=== PATIENT | female | born 1985 | race Caucasian/White ===

== ENCOUNTER 2017-01-15 15:41 | Observation (INO) | payer OTHER ==
[2017-01-15] MEDS ORDERED: Ondansetron INJ* 2 MG/ML VIAL IV PRN (15:45)
[2017-01-15] MEDS ORDERED: Albuterol HFA INHALER* 8 gm MDI INH PRN (15:51)
[2017-01-15] MEDS ORDERED: diPHENhydraMINE PO* 50 MG PO PRN (16:42)
[2017-01-15] MEDS ORDERED: Acetaminophen ADULT LIQ* 650 MG/20.3 ML UDC PO PRN (16:42)
[2017-01-15] MEDS: HYDROmorphone* 1 MG/ML 1 ML SYR IV PRN ×2 (17:58→21:27)
[2017-01-15 19:15] LABS: Hematocrit 43 % (35-47); Hemoglobin 14.8 g/dl (12.0-16.0); Mean Corpuscular HGB Conc 35 g/dl (31-36); Mean Corpuscular Hemoglobin 29 pg (27-31); Mean Corpuscular Volume 85 fL (80-97); Mean Platelet Volume 10 um3 (7.4-10.4); Red Blood Count 5.02 10^6/ul (4.0-5.4); Red Cell Distribution Width 13 % (10.5-15); White Blood Count 5.5 10^3/ul (3.5-10.8)
[2017-01-15 19:44] LABS: ALT 16 U/L (7-52); Albumin 4.5 g/dL (3.2-5.2); Alkaline Phosphatase 68 U/L (34-104); BUN/Creatinine Ratio 20.3 (8-20); Blood Urea Nitrogen 13 mg/dL (6-24); CO2 Carbon Dioxide 25 mmol/L (22-32); Calcium 9.6 mg/dL (8.6-10.3); Chloride 103 mmol/L (101-111); EGFR African American 139.2 (>60); EGFR Non-African American 108.2 (>60); Globulin 3.3 g/dL (2-4); Glucose 84 mg/dL (70-100); Sodium 136 mmol/L (133-145); Total Protein 7.8 g/dL (6.4-8.9)
[2017-01-15] MEDS ORDERED: Iohexol 300* (CONTRAST) 10 ML SDV IV ONE (19:52)
[2017-01-15 19:55] LABS: Anion Gap 8 mmol/L (2-11)
[2017-01-15] MEDS ORDERED: CMCS:Escitalopram (NF) 10 MG TAB PO SCH (21:00)
--- NOTE | 2017-01-15 21:13 | RAD ---
INDICATION: Abdominal pain. History of gastric surgery 2012 (Osito-en-Y). COMPARISON: CT June 22, 2016 TECHNIQUE: Axial source images were obtained from the hemidiaphragms to the symphysis pubis following administration of oral and intravenous contrast. 120 mL Omnipaque 300 was utilized. Coronal and sagittal reconstructed images were acquired. Lung bases: The lung bases are clear. Liver: The liver is mildly enlarged with findings of hepatic steatosis. There are no masses. There is no ductal dilatation. Gallbladder: Cholecystectomy. Spleen: The spleen is mildly prominent, unchanged. There are no masses. Pancreas: There is no focal pancreatic mass or ductal dilatation. Adrenal glands: There is no evidence of adrenal mass. Kidneys: The kidneys are normal in size and position. There are prompt nephrograms and there is prompt excretion bilaterally. There are no renal parenchymal masses. There is no evidence of nephrolithiasis. Adenopathy: There is no evidence of adenopathy by size criteria. Fluid collections: There are no free or localized fluid collections. Vessels:There are no significant atherosclerotic changes involving the aorta. There is no focal aneurysm. The iliac vessels are normal in caliber. The IVC appears normal. GI tract: There is prior bariatric surgery. The patient has a history of a gastric Osiot-en-Y procedure. The CT appearance is unchanged. Small bowel appears normal. There are no colonic abnormalities. There is no obstruction. The bowel gas pattern is normal. Pelvic organs: There are fluid collections in the endometrial cavity. There is bilateral tubal ligation. Both ovaries appear unremarkable. Bladder: There are no bladder masses. Abdominal and pelvic soft tissues: The extraperitoneal abdominal and pelvic soft tissues appear normal.. Osseous structures: There are no acute osseous findings. Other: None IMPRESSION: 1. Gastric Osito-en-Y procedure. 2. Mild hepatosplenomegaly with hepatic steatosis 3. Endometrial fluid collections. Suggest follow-up pelvic sonography.
--- NOTE | 2017-01-16 00:23 | HP ---
CC: Dr. Carito Desia * ADMISSION HISTORY AND PHYSICAL: DATE OF ADMISSION: 01/15/17 ATTENDING SURGEON: Dr. Nadeem Andres * (DICTATED BY NELLIE PONCE) CHIEF COMPLAINT: Abdominal pain. HISTORY OF PRESENT ILLNESS: This is a 31-year-old female who is approximately 8 months status post laparoscopic Osito-en-Y gastric bypass with Dr. Romo. She has lost approximately 100 pounds and other than one episode of minor right lower quadrant crampy pain, has had otherwise uneventful postoperative course. Beginning 2 days ago on Saturday, she began to experience crampy abdominal pain in the mid abdomen. This has been constant since then and is exacerbated by eating and drinking. She has been unable to keep any solid food down and only able to keep some liquids down. Pain has been located in the mid abdomen where it has remained since onset. She has not had any similar episodes before. She has not had any recent suspect food ingestion. She has been continuing to pass flatus and has had a normal bowel movement this morning. She denies any fever or chills. PAST MEDICAL HISTORY: Morbid obesity, PCOS, hypothyroidism, hyperlipidemia, anxiety and depression, fatty liver changes, asthma (mild). PAST SURGICAL HISTORY: Laparoscopic Osito-en-Y gastric bypass on 05/29/16, C- section x2, tubal ligation, laparoscopic cholecystectomy, NovaSure procedure for heavy menstrual bleeding in 2013. CURRENT MEDICATIONS: 1. Lexapro 20 mg daily. 2. Levothyroxine 50 mcg daily. 3. Vitamin D 2000 International Units once daily. 4. Multivitamin once daily. 5. Vitamin B12 1000 mcg daily. ALLERGIES: ERYTHROMYCIN and AUGMENTIN, both cause rash and difficulty breathing ; NAPROXEN causes hives (the patient does tolerate ibuprofen). FAMILY HISTORY: Positive for DVT in her father which occurred following amputation of one of his lower extremities. There is no additional family history of VTE. No family history of bleeding problems. SOCIAL HISTORY: The patient is . She has 4 children. She denies use of tobacco. She drinks alcohol rarely. REVIEW OF SYSTEMS: General: See HPI. No other recent acute illnesses. Weight down approximately 100 pounds from preop. She was seen in the office in November for routine bariatric followup and was doing well at that time. Her bariatric profile done around 12/21/16 was reviewed and was essentially normal including CBC. Cardiovascular: No history of chest pain, hypertension, or heart murmur. Respiratory: No recent exacerbations of her asthma. No cough or shortness of breath. GI: As above per HPI. She has had colonoscopy done last year, which was reportedly a normal study. EGD had also been done preoperatively. : No problems reported. 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 No other additions. Neuro/Psych: History of anxiety and depression. PHYSICAL EXAMINATION GENERAL: Well-nourished, obese female, who appears uncomfortable, but in no acute distress. VITAL SIGNS: Height 68 inches, weight 199 pounds (preoperative weight 314 pounds.) Temperature 97.3, blood pressure 104/72, pulse 72, respirations 16, BMI 30. HEENT: Pupils equal and round, reactive. EOMs intact. Conjunctivae pink. Oropharynx: Teeth in good repair. Mucous membranes dry. No intraoral lesions. NECK: No lymphadenopathy or thyromegaly. LUNGS: Clear to auscultation. No rales or wheezes. HEART: Regular rate and rhythm. No murmur noted. BREASTS: Not examined. ABDOMEN: Well-healed laparoscopic incision sites. The patient states that her abdomen feels bloated. Bowel sounds are present and normoactive. Abdomen is soft with [id number]-xb-[id number] tenderness limited to the mid abdomen and to the right of midline. No palpable masses or organomegaly, though there is fullness in the mid abdomen. GENITALIA AND RECTAL: Not done. BACK: No spinous process or CVA tenderness. EXTREMITIES: No edema. NEUROLOGICAL: Grossly intact. SKIN: Warm and dry. No suspicious rashes or lesions. IMPRESSION: Abdominal pain status post Osito-en-Y gastric bypass with concern for internal hernia with consequential bowel obstruction. PLAN: Case was discussed with both Dr. Andres (substation technician) and Dr. Varma. The patient will be referred to [facility] for CT scan of the abdomen and pelvis with contrast. She will then be admitted as an overnight observation for IV hydration and pain control. If her symptoms persist and/or her CT scan is suggestive, she may be taken to the operating room for diagnostic laparoscopy with Dr. Varma (Dr. Romo is away). The patient is agreeable to this plan. NELLIE PONCE [id number]/[facility] #: [id number] SARAH
[2017-01-16] MEDS: HYDROmorphone* 1 MG/ML 1 ML SYR IV PRN ×2 (07:30→13:16)
[2017-01-16] MEDS ORDERED: Pantoprazole IV* 40 MG IV SCH (08:00)
--- NOTE | 2017-01-16 09:45 | PN ---
Progress Note - Progress Note Date of Service: 01/16/17 SOAP: Subjective: Patient seen and examined by Dr. Varma. Reports feeling a little better today. Pain is still there, "not as bad", usually worsens when she eats. Denies nausea , vomiting, fever or chills. Feels very hungry, would like to resume diet. Denies dysuria or flank pain. Objective: Awake and alert, comfortable and in NAD VSS, afebrile Lungs CTA bilat. Heart RRR, no murmurs Abdomen soft, non-distended. Mild arturo-umbilical and infra-umbilical tenderness noted, but no guarding, rigidity or rebound. Incisions from prior surgeries well healed. No hernias noted. CT reviewed with Dr. Varma, no evidence of SBO or internal hernia. ? endometrial fluids collection. Labs noted, WNL Assessment: A 31 y/o female, s/p RYGB 8 month ago, with abdominal pain, dysphagia and intermittent N/V, with negative CT and labs, likely related to possible ulcer Plan: EGD today, Dr. Varma had discussed the case with Dr. Telles who will proceed with EGD later today. Patient agreed to plans Likely to d/c home later today pending EGD findings PPI and will add Carafate upon discharge
[2017-01-16] MEDS ORDERED: fentaNYL* 50 MCG/ML 2 ML VIAL (100 MCG VIAL) ONE (15:18)
[2017-01-16] MEDS ORDERED: Midazolam* 1 MG/ML 10 ML VIAL (10 MG) ONE (15:18)
[2017-01-16 16:37] VITALS: BP 116/67
[2017-01-16] MEDS ORDERED: Cholecalciferol TAB* 1000 UNITS PO SCH (21:00)
[2017-01-16] MEDS ORDERED: Levothyroxine TAB* 50 MCG TAB PO SCH (21:00)
--- NOTE | 2017-01-17 11:18 | PRO ---
CC: Dr. Carlos Enrique Varma. * DATE OF PROCEDURE: 01/16/17 - ROOM #[id number] PROCEDURE: Upper endoscopy. MEDICINES: Versed 9 mg IV, Fentanyl 75 mcg IV. NARRATIVE: This is a 31-year-old woman who is approximately 8 months status post bariatric surgery for morbid obesity. She successfully lost 8 pounds and had done very well. About 3 days ago, she started to develop periumbilical pain , which worsens after meals. The pain has persisted and she came to the emergency room. A CAT scan was generally unrevealing. Due to these symptoms, upper endoscopy was recommended. PROCEDURE IN DETAIL: After the procedure was discussed with the patient, risks and benefits were outlined, written consent was obtained. The patient was placed in the left lateral decubitus position and conscious sedation was administered. A video diagnostic gastroscope was inserted orally and passed carefully into the esophagus. The esophagus, gastric pouch, and jejunal limb were well visualized. The patient tolerated the procedure well and there were no immediate complications. FINDINGS: The esophagus was normal. There was no evidence of erosive change or stricture. The gastric pouch was normal, there was no inflammatory change or ulceration. The gastrojejunal anastomosis was normal and widely patent. There was no evidence of stricture, erosion, or inflammatory change. A couple of small sutures were identified. The endoscope was passed easily through the anastomosis. The jejunal limb was normal as well and the limb was viewed for about 30 cm without any lesion identified. CONCLUSION: Normal post-bariatric upper endoscopy without any evidence of anastomotic ulceration, erosion, or stricture. [id number]/[facility] #: [id number] MTDD
--- NOTE | 2017-01-17 13:28 | DS ---
CC Dr. Carito Desai * DISCHARGE SUMMARY: DATE OF ADMISSION: 01/15/17 DATE OF DISCHARGE: 01/16/17 ATTENDING PHYSICIAN: Dr. Varma * (DICTATED BY NELLIE LOPEZ) HOSPITAL COURSE: Please refer to admission history and physical for admission details. Briefly, the patient is sent to [facility] after office visit with history of 48 hours of persistent crampy abdominal pain associated with vomiting and poor intake. Her admission labs were essentially normal. CT scan with oral and IV contrast was normal. There was mild hepatosplenomegaly noted with hepatic steatosis and also a note of endometrial fluid collection with suggested followup pelvic ultrasound. As of the following morning, she was somewhat improved and was hungry. She was seen by Dr. Varma. EGD was requested and performed with verbal report indicating no abnormalities of the upper GI tract. The patient will be discharged on her usual home medications. She has a followup with Dr. Romo in the office on 01/21/17. She is instructed to contact our office if she has worsening symptoms of abdominal pain with vomiting. NELLIE PONCE [id number]/[facility] #: [id number] MTDD
== END 2017-01-16 18:10 | disposition home or self-care (01) ==
LOC: SSU 15:41
PROVIDERS: ADMIT Surgery; ATTEND Surgery
DX: R10.33 Periumbilical pain (principal); Z98.84 Bariatric surgery status; E66.01 Morbid (severe) obesity due to excess calories; E28.2 Polycystic ovarian syndrome; E03.9 Hypothyroidism, unspecified; E78.5 Hyperlipidemia, unspecified; F41.9 Anxiety disorder, unspecified; F32.9 Major depressive disorder, single episode, unspecified
CPT/HCPCS: 36415; 74177; 80053; 85025; 94760; 96365; 96366; 99156; A9270-GY; G0378; J1170; J2250; J2405; J3010; Q9967

== ENCOUNTER 2017-01-21 09:41 | Inpatient (IN) | payer OTHER ==
[2017-01-21] MEDS ORDERED: Albuterol HFA INHALER* 8 gm MDI INH PRN (10:31)
--- NOTE | 2017-01-21 11:14 | PN ---
Progress Note - Progress Note Date of Service: 01/21/17 SOAP: Subjective: Patient seen and examined upon her arrival. Reports same symptoms from last week. Nausea not improving, feeling bloated and mid-abdominal pain is not relived. Denies any vomiting. Her PO intake has been poor since discharge last week. Objective: Awake and alert, in NAD VSS, afebrile Lungs CTA bilat. Heart RRR, no murmurs Abdomen soft, non-distended. Mild to moderate mid-abdominal tenderness, but without guarding, rigidity or rebound. Incisions well healed. No hernias, masses or organomegally. Ext. without edema Assessment: A 32 y/o female with persistent vague, mid-abdominal pain and nausea, s/p RYGB 8 month ago, of unclear etiology. Plan: Admit for IVF NPO after midnight To OR tomorrow for diagnostic laparoscopy PPI and DVT prophylaxis.
[2017-01-21] MEDS: Pantoprazole IV* 40 MG IV SCH (11:34)
[2017-01-21] MEDS: HYDROmorphone* 1 MG/ML 1 ML SYR IV PRN ×2 (11:35→19:58)
[2017-01-21] MEDS: Ondansetron INJ* 2 MG/ML VIAL IV PRN (11:35)
[2017-01-21 11:38] LABS: Hematocrit 41 % (35-47); Hemoglobin 13.9 g/dl (12.0-16.0); Mean Corpuscular HGB Conc 34 g/dl (31-36); Mean Corpuscular Hemoglobin 29 pg (27-31); Mean Corpuscular Volume 85 fL (80-97); Mean Platelet Volume 9 um3 (7.4-10.4); Red Blood Count 4.78 10^6/ul (4.0-5.4); Red Cell Distribution Width 13 % (10.5-15); White Blood Count 4.2 10^3/ul (3.5-10.8)
[2017-01-21 11:51] LABS: BUN/Creatinine Ratio 18.3 (8-20); Calcium 9.5 mg/dL (8.6-10.3); EGFR Non-African American 115.9 (>60); Potassium 3.8 mmol/L (3.5-5.0)
[2017-01-21] MEDS: Acetaminophen ADULT LIQ* 650 MG/20.3 ML UDC PO PRN (15:24)
[2017-01-22] MEDS: Acetaminophen ADULT LIQ* 650 MG/20.3 ML UDC PO PRN ×2 (00:01→17:56)
[2017-01-22] MEDS: HYDROmorphone* 1 MG/ML 1 ML SYR IV PRN ×3 (01:57→20:38)
[2017-01-22] MEDS: Levothyroxine TAB* 50 MCG TAB PO SCH (06:03)
[2017-01-22] MEDS ORDERED: Famotidine IV* 10 MG/ML 2 ML (20 mg) IV ONE (08:22)
[2017-01-22] MEDS ORDERED: Buffered Lidocaine 0.9% SYRIN* 5 ML/SYR SYRINGE INTRADERM ONE (08:22)
[2017-01-22] MEDS ORDERED: Dexamethasone IV* 4 MG/ML 1 ML (4 MG) IV SLOW PU ONE (08:22)
[2017-01-22] MEDS ORDERED: Famotidine IV* 10 MG/ML 2 ML (20 mg) ONE (09:37)
[2017-01-22] MEDS ORDERED: Dexamethasone IV* 4 MG/ML 1 ML (4 MG) ONE (09:37)
[2017-01-22] MEDS ORDERED: fentaNYL* 50 MCG/ML 2 ML VIAL (100 MCG VIAL) IV PRN (11:20)
[2017-01-22] MEDS ORDERED: DiMENhydriNATE IV* 50 MG/ML VIAL IV PUSH PRN (11:20)
[2017-01-22] MEDS ORDERED: HYDROmorphone* 1 MG/ML 1 ML SYR IV PRN (11:20)
[2017-01-22] MEDS ORDERED: Ondansetron INJ* 2 MG/ML VIAL IV PRN (11:20)
[2017-01-22] MEDS ORDERED: Scopolamine 1.5 mg* PATCH TRANSDERM PRN (11:20)
[2017-01-22] MEDS ORDERED: Bupivacaine 0.5% W/EPI SDV* 10 ML VIAL INJ ONE (11:22)
[2017-01-22] MEDS ORDERED: fentaNYL* 50 MCG/ML 5 ML VIAL (250 MCG VIAL) ONE (11:24)
[2017-01-22] MEDS ORDERED: Atracurium* 10 MG/ML 10 ML VIAL ONE (11:24)
[2017-01-22] MEDS ORDERED: Ondansetron INJ* 2 MG/ML VIAL ONE (11:24)
[2017-01-22] MEDS ORDERED: Propofol* 10 MG/ML 20 ML BTL IV PUSH ONE (11:24)
[2017-01-22] MEDS ORDERED: Midazolam* 1 MG/ML 5 ML VIAL (5 MG) ONE (11:24)
[2017-01-22] MEDS ORDERED: Ketorolac INJ* 30 MG/ML 1 ML VIAL ONE (11:24)
[2017-01-22] MEDS ORDERED: Lidocaine 2% PF * 5 ML VIAL ONE (11:24)
[2017-01-22] MEDS ORDERED: fentaNYL* 50 MCG/ML 2 ML VIAL (100 MCG VIAL) ONE (11:57)
--- NOTE | 2017-01-22 12:40 | PN ---
Progress Note - Progress Note Date of Service: 01/22/17 Note: Brief Operative Note: Pre-op: Abdominal pain, nausea and vomiting, bariatric status Post-op: Same Procedure: Diagnostic laparoscopy with closure of internal hernia deficits Surgeon: Dr. Romo Airworthiness Safety Inspector: Magy Calloway Anaesthesia: GETA EBL: Minimal Fluids: LR 700 cc Catheters: None Drains: None specimen: None Findings: See dictated op note
[2017-01-22] MEDS: Pantoprazole IV* 40 MG IV SCH (13:30)
[2017-01-22] MEDS: Escitalopram (NF) 10 MG TAB PO SCH (14:11)
[2017-01-22] MEDS: Ondansetron INJ* 2 MG/ML VIAL IV PRN (20:39)
[2017-01-23] MEDS: Acetaminophen ADULT LIQ* 650 MG/20.3 ML UDC PO PRN ×2 (00:09→23:35)
[2017-01-23] MEDS: Levothyroxine TAB* 50 MCG TAB PO SCH (05:37)
[2017-01-23] MEDS: HYDROmorphone* 1 MG/ML 1 ML SYR IV PRN (05:38)
--- NOTE | 2017-01-23 05:55 | OP ---
CC: Dr. Argentina Maurer * DATE OF OPERATION: 01/22/17 - ROOM #333 DATE OF : 85 SURGEON: Mike Romo MD THEORETICAL PHYSICIST: NELLIE Bloom ANESTHESIOLOGIST: Jamari Philip MD ANESTHESIA: General endotracheal. PRE-OP DIAGNOSIS: Abdominal pain. POST-OP DIAGNOSES: Abdominal pain and internal hernia status post gastric bypass. OPERATIVE PROCEDURE: Diagnostic laparoscopy, closure of internal hernia defects. ESTIMATED BLOOD LOSS: Minimal. IV FLUIDS: Crystalloid. SPECIMEN: None. DRAINS: None. COMPLICATIONS: None. COUNTS: The instrument, needle, and sponge counts were correct. DESCRIPTION OF PROCEDURE: The patient was brought to the operating room and placed on the table supine. Sequential compression devices were placed on both lower extremities. General anesthesia was administered. The abdomen was prepped and draped in the usual sterile fashion. A time-out was performed. Local anesthetic was infiltrated into the skin and soft tissue prior to making each incision. The pneumoperitoneum was established using a Veress needle through a transumbilical approach and then a right upper quadrant 5-mm trocar was placed through previous scar. Laparoscope was introduced and inspection revealed no evidence of adhesions and no evidence of obvious pathology, no ascites. Under direct visualization, additional 5-mm trocars were placed in the supraumbilical midline and infraumbilically as well. The inspection proceeded with identification of the cecum, which appeared normal. The small bowel was run proximally from the ileocecal valve to the jejunojejunostomy. There was a small defect at the mesentery of the jejunojejunostomy; however, the bowel otherwise appeared to be quite normal with no evidence of inflammation. There was some mild small bowel distention in the area of the mid jejunum, but no other abnormality noted. The bowel was run from the jejuno-jejunostomy proximally to the ligament of Treitz and this appeared normal with no dilation. The jejunum was run proximally from the anastomosis to the gastrojejunal anastomosis, which also appeared normal. There were hernia defect as expected in the retro-alimentary limb and closure of the hernia defects was performed with 2-0 silk in interrupted figure-of-8 fashion tacking the mesentery of the Osito limb down to the anterior transverse colon and then the mesentery of the Osito limb also to the mesentery of the transverse colon. A single suture was used to close the defect at the jejuno- jejunostomy mesenteric site. After completing these closures, the ports were removed under direct visualization and carbon dioxide was released. The wounds were closed with 4-0 Monocryl and Steri-Strips were applied. The patient tolerated the procedure well, was extubated, and transferred to recovery room in stable condition. [id number]/[facility] #: [id number] [facility] [place] DIVISIONTonny
[2017-01-23] MEDS: Escitalopram (NF) 10 MG TAB PO SCH (08:33)
[2017-01-23] MEDS ORDERED: Ondansetron ODT TAB* 4 MG SL PRN (09:42)
[2017-01-23] MEDS: Pantoprazole IV* 40 MG IV SCH (09:55)
--- NOTE | 2017-01-23 09:58 | PN ---
Progress Note - Progress Note Date of Service: 01/23/17 SOAP: Subjective: Feeling nausea, hasn't vomited. Passing flatus and had 2 BMs. Pain controlled with Dilaudid and Tylenol. Discussed discharge expectations and she states she just wants to be ready to take care of her kids when she goes home. Objective: Vital Signs Temp 97.6 F 01/23/17 03:23 Pulse 50 01/23/17 03:23 Resp 16 01/23/17 06:38 BP 112/64 01/23/17 03:23 Pulse Ox 99 01/23/17 03:23 Gen: NAD Abd: dressings c/d i; tender at incisions. Intake & Output 01/22/17 01/23/17 01/23/17 18:59 06:59 18:59 Intake Total 4563 3085 100 Output Total 1300 1450 400 Balance 3263 1635 -300 Weight 195 lb Intake: IV Fluids 3404 1725 LR 1400 IVPB 1159 LR 1159 Oral 1360 100 Output: Urine 1300 1450 400 Assessment: POD#1 s/p dx lap/repair internal hernia defects. Nausea continues but no obvious cause, possibly gastritis in gastric remnant. Plan: Advance diet and change to po meds. If able to maintain hydration po and tolerating po meds can likely go home later today or in AM. Will add PPI to cover potential gastritis in remnant. Zofran for nausea.
[2017-01-23] MEDS: HYDROcodone/ACET. 7.5/325 LIQ* 15 ML UDC PO PRN ×3 (10:03→21:12)
[2017-01-24] MEDS: HYDROcodone/ACET. 7.5/325 LIQ* 15 ML UDC PO PRN (05:54)
[2017-01-24] MEDS: Levothyroxine TAB* 50 MCG TAB PO SCH (05:55)
[2017-01-24] MEDS ORDERED: Omeprazole CAP* 20 MG PO SCH (06:00)
[2017-01-24 08:02] VITALS: BP 109/59
[2017-01-24] MEDS: Escitalopram (NF) 10 MG TAB PO SCH (09:16)
[2017-01-24] MEDS: Acetaminophen ADULT LIQ* 650 MG/20.3 ML UDC PO PRN (09:20)
--- NOTE | 2017-01-25 01:18 | DS ---
CC: Dr. Maurer * DISCHARGE SUMMARY: DATE OF ADMISSION: 01/21/17 DATE OF DISCHARGE: 01/24/17 ATTENDING SURGEON: Mike Romo MD * (DICTATED BY NELLIE PONCE) HOSPITAL COURSE: Please refer to admission history and physical for admission details. Briefly, the patient presented with similar symptoms from 1 week earlier, at which time CT scan of the abdomen and pelvis and lab work were essentially normal. She was taken to the operating room on 01/22/17, at which time she underwent diagnostic laparoscopy with closure of internal hernia defects (see operative report). She has gradually been able to advance tolerance of diet and management of pain with oral pain medication as of the morning of discharge. PHYSICAL EXAMINATION: Vital Signs: She is afebrile. Blood pressure 109/59, pulse 57, respirations 12, room air saturation 98%. Heart: Regular rate and rhythm. Lungs: Clear to auscultation. Abdomen: Bowel sounds present. Laparoscopic incision sites healing well. No evidence of infection. Abdomen: Soft with mild tenderness in the upper mid abdomen and just to the left of midline. IMPRESSION: Status post diagnostic laparoscopy (negative) for recurrent abdominal pain; possible gastritis in the stomach remnant. PLAN: Discharge on oral PPI (omeprazole 20 mg b.i.d.). She will have a followup in our office on 01/31/17. NELLIE PONCE [id number]/[facility] #: [id number] [facility] [place] DIVISIONTonny
[2017-01-25] MEDS ORDERED: Scopolomine PATCH Remove* 1 NOTE MISC PATCH OFF ONE (11:20)
== END 2017-01-24 10:38 | disposition home or self-care (01) | DRG 227 ==
LOC: INTOOBSV 09:53 → SSU 09:53 → OBSVTOIN 01-23 14:41
PROVIDERS: ADMIT Surgery; ATTEND Surgery
PROC: 0WQF4ZZ Repair Abdominal Wall, Percutaneous Endoscopic Approach (ICD-10-PCS; principal; 2017-01-22 10:45)
DX: K29.70 Gastritis, unspecified, without bleeding (principal); K46.0 Unspecified abdominal hernia with obstruction, without gangrene; E66.9 Obesity, unspecified; R11.0 Nausea; J45.909 Unspecified asthma, uncomplicated; E03.9 Hypothyroidism, unspecified; Z98.84 Bariatric surgery status; Z88.8 Allergy status to other drugs, medicaments and biological substances; Z88.1 Allergy status to other antibiotic agents; Z68.29 Body mass index [BMI] 29.0-29.9, adult
CPT/HCPCS: 36415; 80048; 85025; 94760; A9270-GY; G0378; J1100; J1170; J1885; J2250; J2405; J2704; J3010

== ENCOUNTER 2017-12-31 08:21 | Day surgery (SDC) | payer OTHER ==
[~2017-12-31 08:21] MED LIST: Buffered Lidocaine 0.9% SYRIN* 5 ML/SYR SYRINGE INTRADERM ONE; Dexamethasone TAB* 4 MG PO ONE; DiMENhydriNATE IV* 50 MG/ML VIAL IV PUSH PRN; Famotidine IV* 10 MG/ML 2 ML (20 mg) IV ONE; Morphine INJ* 2 MG/ML 1 ML CARPUJECT IV PRN; Naloxone* 0.4 MG/ML 1 ML VIAL IV PRN; Ondansetron TAB* 4 MG PO ONE; PROCHLORPERAZINE INJ 5 MG/ML 2 ML VIAL IV PRN; Scopolamine 1.5 mg* PATCH TRANSDERM PRN; fentaNYL* 50 MCG/ML 2 ML VIAL (100 MCG VIAL) IV PRN
[2017-12-31] MEDS ORDERED: Dexamethasone TAB* 4 MG ONE (08:32)
[2017-12-31] MEDS ORDERED: Famotidine IV* 10 MG/ML 2 ML (20 mg) ONE (08:32)
[2017-12-31] MEDS ORDERED: Ondansetron ODT TAB* 4 MG ONE (08:32)
[2017-12-31] MEDS ORDERED: fentaNYL* 50 MCG/ML 2 ML VIAL (100 MCG VIAL) ONE ×3 (10:37→14:14)
[2017-12-31] MEDS ORDERED: Midazolam* 1 MG/ML 5 ML VIAL (5 MG) ONE (10:38)
[2017-12-31] MEDS ORDERED: KETAMINE HCL* 50 MG/ML 10 ML VIAL ONE (10:38)
[2017-12-31] MEDS ORDERED: Atracurium* 10 MG/ML 10 ML VIAL ONE (10:38)
[2017-12-31] MEDS ORDERED: Bupivacaine 0.25% SDV PF* 10 ML VIAL INJ ONE (12:39)
[2017-12-31] MEDS ORDERED: Propofol* 10 MG/ML 20 ML BTL IV PUSH ONE (13:21)
[2017-12-31] MEDS ORDERED: PROCHLORPERAZINE INJ 5 MG/ML 2 ML VIAL ONE ×2 (13:21→14:22)
[2017-12-31] MEDS ORDERED: Neostigmine Methylsulfate* 1 MG/ML 10 ML VIAL (1 mg/ml) ONE (13:21)
[2017-12-31] MEDS ORDERED: Lidocaine 2% PF * 5 ML VIAL ONE (13:21)
[2017-12-31] MEDS ORDERED: Glycopyrrolate IV* 0.2 MG/ML 1 ML VIAL ONE (13:21)
[2017-12-31] MEDS ORDERED: Scopolamine 1.5 mg* PATCH ONE (14:22)
[2017-12-31 15:41] VITALS: BP 112/57
--- NOTE | 2018-01-01 09:39 | OP ---
: [facility]; Dr. Linette Tapia * DATE OF OPERATION: 12/31/17 - [facility] DATE OF : 85 SURGEON: Mike Romo MD. INSIDE ACCOUNT REPRESENTATIVE: None. ANESTHESIOLOGIST: Nadeem Read MD. ANESTHESIA: General endotracheal. PRE-OP DIAGNOSIS: Abdominal pain, status post gastric bypass. POST-OP DIAGNOSIS: Abdominal pain, status post gastric bypass. OPERATIVE PROCEDURE: Diagnostic laparoscopy. ESTIMATED BLOOD LOSS: Minimal. IV FLUIDS: Crystalloid. SPECIMEN: None. DRAINS: None. COMPLICATIONS: None. COUNTS: The instrument, needle, and sponge counts correct. OPERATIVE FINDINGS: Normal findings with no abnormalities of the gastric bypass anatomy. There were some postoperative adhesions in the pelvis. DESCRIPTION OF PROCEDURE: The patient was brought to the operating room and placed on the table supine. Sequential compression devices were placed on both lower extremities. She was positioned and padded appropriately. She was prepped and draped in the usual sterile fashion. A time-out was performed. Local anesthetic was infiltrated into the skin and soft tissue prior to making each incision. Pneumoperitoneum was established by means of a Veress needle through a transumbilical approach. After insufflating carbon dioxide to a pressure of 15 mmHg, a 5 mm trocar was placed infraumbilically through the previous scar. A 5 mm trocar was placed infraumbilically through a previous scar. A 5-mm trocar was also placed under direct visualization in the left mid abdomen. Inspection of the abdominal cavity revealed no intraperitoneal adhesions to the anterior abdominal wall. The liver appeared normal as did the falciform ligament and there was no evidence of abnormal dilation of the small bowel or large bowel. Inspection proceeded from the gastrojejunal anastomosis distally tracing the Osito limb down to the jejunojejunostomy. The biliopancreatic limb was inspected and it was run proximally to the ligament of Treitz. It appeared normal, nondilated, and the anastomosis at the jejunojejunostomy appeared widely patent. There was no mesenteric defect noted. The Osito limb was again identified and then the jejunum was followed distally to the ileocecal valve. There was no abnormality in the small bowel identified. The bowel was run again proximally from the ileocecal valve to the jejunojejunostomy to assure that there were no missed abnormalities. Everything did appear normal. The defunctionalized stomach appeared normal anteriorly with no dilation. The surface underneath the liver on the right lobe appeared to have postoperative changes from the cholecystectomy, but otherwise normal. The colon appeared grossly normal through its course. There were adhesions in the pelvis and this prevented visualization of the pelvis, but no adhesiolysis was performed. At this point, the operation was concluded. Ports removed, carbon dioxide was released. Skin incisions were closed with 4-0 Monocryl and Steri-Strips applied. The patient tolerated the procedure well, was extubated, and transferred to the recovery room in stable condition. [id number]/[facility] #: [id number] [facility] HOSPITALTonny
[2018-01-03] MEDS ORDERED: Scopolamine PATCH Remove* 1 NOTE MISC PATCH OFF ONE (05:53)
== END 2017-12-31 16:01 | disposition home or self-care (01) ==
LOC: OR 08:21
PROVIDERS: ATTEND Surgery
DX: R10.84 Generalized abdominal pain (principal); Z98.84 Bariatric surgery status; R19.7 Diarrhea, unspecified; N73.6 Female pelvic peritoneal adhesions (postinfective); E78.00 Pure hypercholesterolemia, unspecified; E03.9 Hypothyroidism, unspecified; F41.8 Other specified anxiety disorders; J45.909 Unspecified asthma, uncomplicated; E28.2 Polycystic ovarian syndrome
CPT/HCPCS: 49320; A9270-GY; J0780; J2250; J2704; J2710; J3010; J3490; J8540

== ENCOUNTER 2020-07-26 14:40 | Inpatient (IN) ==
[2020-07-26] MEDS ORDERED: Thiamine 100 MG/ML 2 ml VIAL 100 MG, Folic Acid 1 MG, Multiple Vitamin IV ADULT 10 ML i... IV ONE (15:55)
[2020-07-26 17:05] LABS: ABS Lymphocytes 1.3 10^3/ul (1.0-4.8); ABS Monocytes 0.2 10^3/ul (0-0.8); ABS Neutrophils 2.6 10^3/ul (1.5-7.7); Eosinophil % 0.3 %; Hematocrit 35 % (35-47); Hemoglobin 12.2 g/dL (12.0-16.0); Lymphocyte % 30.3 %; Mean Corpuscular HGB Conc 35 g/dL (31-36); Mean Corpuscular Hemoglobin 30 pg (27-31); Mean Corpuscular Volume 86 fL (80-97); Mean Platelet Volume 8.6 fL (7.4-10.4); Platelet Count 111 10^3/uL (150-450); Red Cell Distribution Width 12 % (10-15); White Blood Count 4.1 10^3/uL (3.5-10.8)
[2020-07-26 17:24] LABS: Albumin 3.5 g/dL (3.2-5.2); CO2 Carbon Dioxide 17 mmol/L (22-32); Calcium 8.4 mg/dL (8.6-10.3); Chloride 109 mmol/L (101-111); Sodium 135 mmol/L (135-145)
[2020-07-26 17:30] LABS: Glucose 82 mg/dL (70-100)
[2020-07-26 17:45] LABS: ALT 23 U/L (7-52); Albumin/Globulin Ratio 1.2 (1-3); Alkaline Phosphatase 64 U/L (34-104); BUN/Creatinine Ratio 12.3 (8-20); Blood Urea Nitrogen 7 mg/dL (6-24); EGFR African American 146.1 (>60); EGFR Non-African American 120.7 (>60); Total Protein 6.5 g/dL (6.4-8.9)
[2020-07-26 17:46] LABS: Anion Gap 9 mmol/L (2-11)
[2020-07-26 19:14] LABS: Magnesium 1.8 mg/dL (1.9-2.7); Potassium Redraw 3.6 mmol/L (3.5-5.0)
[2020-07-26] MEDS ORDERED: Lactated Ringers 1000 ml BAG 1,000 ML IV SCH (20:00)
[2020-07-26] MEDS ORDERED: Magnesium Sulfate 2 gm BAG 2 GM/50 ML BAG IVPB ONE (20:02)
[2020-07-26 20:25] LABS: C Reactive Protein < 1.00 mg/L (<8.01); Lipase 48 U/L (11.0-82.0)
[2020-07-26] MEDS ORDERED: Albuterol HFA INHALER 8 gm MDI INH PRN (21:00)
[2020-07-26] MEDS: Morphine 2 MG/ML SYRINGE IV PRN (21:47)
[2020-07-26] MEDS: Pantoprazole VIAL 40 MG VIAL IV SCH (21:47)
[2020-07-27] MEDS: Morphine 2 MG/ML SYRINGE IV PRN ×3 (03:58→22:15)
[2020-07-27 05:36] LABS: ABS Lymphocytes 1.6 10^3/ul (1.0-4.8); ABS Monocytes 0.2 10^3/ul (0-0.8); ABS Neutrophils 1.5 10^3/ul (1.5-7.7); Hematocrit 33 % (35-47); Hemoglobin 11.5 g/dL (12.0-16.0); Lymphocyte % 46.8 %; Mean Corpuscular HGB Conc 35 g/dL (31-36); Mean Corpuscular Hemoglobin 30 pg (27-31); Mean Corpuscular Volume 85 fL (80-97); Mean Platelet Volume 7.5 fL (7.4-10.4); Nucleated Red Blood Cells % 0.1; Platelet Count 173 10^3/uL (150-450); Red Blood Count 3.91 10^6 /uL (3.70-4.87); Red Cell Distribution Width 12 % (10-15); White Blood Count 3.5 10^3/uL (3.5-10.8)
[2020-07-27 05:48] LABS: Albumin 3.4 g/dL (3.2-5.2); Anion Gap 3 mmol/L (2-11); CO2 Carbon Dioxide 28 mmol/L (22-32); Calcium 8.5 mg/dL (8.6-10.3); Chloride 109 mmol/L (101-111); Potassium 3.5 mmol/L (3.5-5.0); Sodium 140 mmol/L (135-145)
[2020-07-27 05:54] LABS: ALT 20 U/L (7-52); AST 21 U/L (13-39); Albumin/Globulin Ratio 1.4 (1-3); Alkaline Phosphatase 60 U/L (34-104); BUN/Creatinine Ratio 9.2 (8-20); Blood Urea Nitrogen 6 mg/dL (6-24); EGFR African American 125.5 (>60); EGFR Non-African American 103.7 (>60); Globulin 2.4 g/dL (2-4); Glucose 92 mg/dL (70-100); Total Protein 5.8 g/dL (6.4-8.9)
[2020-07-27 06:39] LABS: Magnesium 2.2 mg/dL (1.9-2.7)
[2020-07-27] MEDS ORDERED: Omeprazole 20 mg CAP (NF) PO SCH (09:00)
[2020-07-27] MEDS: Pantoprazole VIAL 40 MG VIAL IV SCH ×2 (09:57→20:44)
[2020-07-27] MEDS: Metoclopramide 5 MG/ML VIAL (10 mg) IV PRN ×2 (10:08→20:53)
[2020-07-27 12:21] LABS: Urine Appearance Clear; Urine Bilirubin Negative (Negative); Urine Blood Negative (Negative); Urine Color Yellow; Urine Glucose Negative (Negative); Urine Ketones Negative (Negative); Urine Nitrite Negative (Negative); Urine Protein Negative (Negative); Urine Specific Gravity 1.011 (1.010-1.030); Urine Urobilinogen Negative (Negative)
[2020-07-27] MEDS: Cholecalciferol (VIT D3) 1,000 unit TAB PO SCH (16:01)
[2020-07-27 16:20] LABS: TSH Ultra Thyroid Stim Horm 1.63 mcIU/mL (0.34-5.60)
[2020-07-27] MEDS: Sucralfate 1 gm SUSP 1 GM/10 ML UDC PO SCH ×2 (18:13→20:44)
[2020-07-28] MEDS: Morphine 2 MG/ML SYRINGE IV PRN ×4 (06:07→22:00)
[2020-07-28 07:10] LABS: ABS Lymphocytes 1.1 10^3/ul (1.0-4.8); ABS Monocytes 0.3 10^3/ul (0-0.8); ABS Neutrophils 1.6 10^3/ul (1.5-7.7); Eosinophil % 0.5 %; Hematocrit 35 % (35-47); Hemoglobin 12.2 g/dL (12.0-16.0); Lymphocyte % 36.8 %; Mean Corpuscular HGB Conc 35 g/dL (31-36); Mean Corpuscular Hemoglobin 30 pg (27-31); Mean Corpuscular Volume 86 fL (80-97); Mean Platelet Volume 7.5 fL (7.4-10.4); Nucleated Red Blood Cells % 0.1; Platelet Count 179 10^3/uL (150-450); Red Blood Count 4.12 10^6 /uL (3.70-4.87); Red Cell Distribution Width 12 % (10-15)
[2020-07-28 07:27] LABS: EGFR African American 113.4 (>60); EGFR Non-African American 93.7 (>60)
[2020-07-28] MEDS: Pantoprazole VIAL 40 MG VIAL IV SCH ×2 (08:48→22:00)
[2020-07-28] MEDS: Metoclopramide 5 MG/ML VIAL (10 mg) IV PRN ×2 (08:48→16:50)
[2020-07-28] MEDS: Sucralfate 1 gm SUSP 1 GM/10 ML UDC PO SCH ×4 (09:04→22:00)
[2020-07-28] MEDS: Cholecalciferol (VIT D3) 1,000 unit TAB PO SCH (09:05)
[2020-07-28] MEDS ORDERED: fentaNYL 100 mcg/2 ml 50 MCG/ML VIAL ONE (13:32)
[2020-07-28] MEDS ORDERED: diPHENhydraMINE IV 50 MG/ML 1 ml VIAL (BENADRYL) ONE (13:32)
[2020-07-28] MEDS ORDERED: Midazolam 10 mg/10 ml VIAL 1 mg/ml 10 ml VIAL (10 mg) ONE (13:32)
[2020-07-29] MEDS: Metoclopramide 5 MG/ML VIAL (10 mg) IV PRN ×3 (00:03→20:22)
[2020-07-29] MEDS: Morphine 2 MG/ML SYRINGE IV PRN ×3 (02:06→11:07)
[2020-07-29 06:18] LABS: ABS Monocytes 0.3 10^3/ul (0-0.8); ABS Neutrophils 1.4 10^3/ul (1.5-7.7); Eosinophil % 0.8 %; Hematocrit 36 % (35-47); Hemoglobin 12.2 g/dL (12.0-16.0); Lymphocyte % 36.7 %; Mean Corpuscular HGB Conc 34 g/dL (31-36); Mean Corpuscular Hemoglobin 29 pg (27-31); Mean Corpuscular Volume 86 fL (80-97); Mean Platelet Volume 7.7 fL (7.4-10.4); Nucleated Red Blood Cells % 0.1; Platelet Count 172 10^3/uL (150-450); Red Blood Count 4.18 10^6 /uL (3.70-4.87); Red Cell Distribution Width 13 % (10-15); White Blood Count 2.7 10^3/uL (3.5-10.8)
[2020-07-29 06:35] LABS: BUN/Creatinine Ratio 10.5 (8-20); Calcium 8.9 mg/dL (8.6-10.3); EGFR African American 104.8 (>60); EGFR Non-African American 86.6 (>60); Potassium 4.3 mmol/L (3.5-5.0)
[2020-07-29] MEDS: Sucralfate 1 gm SUSP 1 GM/10 ML UDC PO SCH ×4 (09:04→20:25)
[2020-07-29] MEDS: Pantoprazole VIAL 40 MG VIAL IV SCH ×2 (09:04→20:22)
[2020-07-29] MEDS: Cholecalciferol (VIT D3) 1,000 unit TAB PO SCH (09:04)
[2020-07-30 07:39] LABS: ABS Lymphocytes 1.2 10^3/ul (1.0-4.8); ABS Monocytes 0.2 10^3/ul (0-0.8); ABS Neutrophils 1.1 10^3/ul (1.5-7.7); Eosinophil % 0.7 %; Hematocrit 39 % (35-47); Hemoglobin 13.1 g/dL (12.0-16.0); Lymphocyte % 45.3 %; Mean Corpuscular HGB Conc 34 g/dL (31-36); Mean Corpuscular Hemoglobin 29 pg (27-31); Mean Corpuscular Volume 87 fL (80-97); Mean Platelet Volume 7.8 fL (7.4-10.4); Platelet Count 171 10^3/uL (150-450); Red Blood Count 4.47 10^6 /uL (3.70-4.87); Red Cell Distribution Width 12 % (10-15); White Blood Count 2.6 10^3/uL (3.5-10.8)
[2020-07-30] MEDS: Sucralfate 1 gm SUSP 1 GM/10 ML UDC PO SCH ×4 (07:49→21:49)
[2020-07-30 07:59] LABS: BUN/Creatinine Ratio 10.7 (8-20); Calcium 9.2 mg/dL (8.6-10.3); EGFR African American 106.4 (>60); EGFR Non-African American 87.9 (>60); Potassium 4.2 mmol/L (3.5-5.0)
[2020-07-30] MEDS: Pantoprazole VIAL 40 MG VIAL IV SCH ×2 (08:36→21:44)
[2020-07-30] MEDS: Metoclopramide 5 MG/ML VIAL (10 mg) IV PRN ×3 (08:36→21:44)
[2020-07-30] MEDS: Cholecalciferol (VIT D3) 1,000 unit TAB PO SCH (08:41)
[2020-07-30] MEDS ORDERED: diPHENhydraMINE IV 50 MG/ML 1 ml VIAL (BENADRYL) IV ONE (18:18)
[2020-07-30] MEDS ORDERED: Iodixanol (CONTRAST) 320 MG/ML 100 ML SDV IV ONE (18:58)
[2020-07-31 07:01] LABS: Hematocrit 38 % (35-47); Hemoglobin 13.3 g/dL (12.0-16.0); Mean Corpuscular HGB Conc 35 g/dL (31-36); Mean Corpuscular Hemoglobin 30 pg (27-31); Mean Corpuscular Volume 85 fL (80-97); Mean Platelet Volume 7.8 fL (7.4-10.4); Platelet Count 161 10^3/uL (150-450); Red Blood Count 4.49 10^6 /uL (3.70-4.87); Red Cell Distribution Width 12 % (10-15); White Blood Count 2.1 10^3/uL (3.5-10.8)
[2020-07-31 07:09] LABS: ABS Neutrophils 0.8 10^3/ul (1.5-7.7)
[2020-07-31 07:14] LABS: Anion Gap 4 mmol/L (2-11); Blood Urea Nitrogen 10 mg/dL (6-24); CO2 Carbon Dioxide 33 mmol/L (22-32); Chloride 101 mmol/L (101-111); EGFR African American 103.2 (>60); EGFR Non-African American 85.3 (>60); Glucose 88 mg/dL (70-100); Potassium 3.9 mmol/L (3.5-5.0); Sodium 138 mmol/L (135-145)
[2020-07-31 07:53] LABS: ABS Monocytes 0.2 10^3/ul (0-0.8); Eosinophil % 1.4 %; Lymphocyte % 49.5 %; Nucleated Red Blood Cells % 0.1
[2020-07-31] MEDS: Metoclopramide 5 MG/ML VIAL (10 mg) IV PRN ×3 (08:05→20:37)
[2020-07-31] MEDS: Sucralfate 1 gm SUSP 1 GM/10 ML UDC PO SCH ×4 (08:05→20:37)
[2020-07-31 09:25] LABS: C Reactive Protein < 1.00 mg/L (<8.01)
[2020-07-31] MEDS: diPHENhydraMINE IV 50 MG/ML 1 ml VIAL (BENADRYL) IV PRN ×3 (09:26→21:37)
[2020-07-31] MEDS: Pantoprazole VIAL 40 MG VIAL IV SCH ×2 (09:26→20:37)
[2020-07-31] MEDS: Cholecalciferol (VIT D3) 1,000 unit TAB PO SCH (09:27)
[2020-07-31 09:56] LABS: Vitamin B12 > 1450 pg/mL (180-914)
[2020-07-31 09:59] LABS: Vitamin D Total 25(OH) 33.2 ng/mL (20-50)
[2020-07-31 12:40] LABS: Erythrocyte Sed Rate 10 mm/Hr (0-19)
[2020-08-01] MEDS: Sucralfate 1 gm SUSP 1 GM/10 ML UDC PO SCH ×4 (08:00→21:38)
[2020-08-01] MEDS: Cholecalciferol (VIT D3) 1,000 unit TAB PO SCH (08:01)
[2020-08-01] MEDS: Pantoprazole VIAL 40 MG VIAL IV SCH ×2 (08:02→21:29)
[2020-08-01] MEDS: Metoclopramide 5 MG/ML VIAL (10 mg) IV PRN ×2 (08:51→14:58)
[2020-08-01] MEDS: diPHENhydraMINE IV 50 MG/ML 1 ml VIAL (BENADRYL) IV PRN ×3 (08:55→21:34)
[2020-08-01 09:18] LABS: ABS Lymphocytes 1.3 10^3/ul (1.0-4.8); ABS Monocytes 0.2 10^3/ul (0-0.8); ABS Neutrophils 1.1 10^3/ul (1.5-7.7); Hematocrit 42 % (35-47); Hemoglobin 14.1 g/dL (12.0-16.0); Lymphocyte % 49.8 %; Mean Corpuscular HGB Conc 34 g/dL (31-36); Mean Corpuscular Hemoglobin 29 pg (27-31); Mean Corpuscular Volume 87 fL (80-97); Mean Platelet Volume 8.3 fL (7.4-10.4); Nucleated Red Blood Cells % 0.1; Platelet Count 176 10^3/uL (150-450); Red Cell Distribution Width 12 % (10-15); White Blood Count 2.6 10^3/uL (3.5-10.8)
[2020-08-01 09:26] LABS: BUN/Creatinine Ratio 11.4 (8-20); Calcium 9.3 mg/dL (8.6-10.3); EGFR African American 100.2 (>60); EGFR Non-African American 82.8 (>60)
[2020-08-01] MEDS: Lidocaine PATCH 5% PATCH TRANSDERM SCH (11:50)
[2020-08-01] MEDS ORDERED: Magnesium CITRATE LIQ 300 ML BTL PO ONE (15:44)
[2020-08-01] MEDS: Ondansetron 4 mg VIAL 2 MG/ML 2 ml VIAL IV PRN (21:24)
[2020-08-01] MEDS: Lidocaine Patch REMOVE PATCH PATCH OFF SCH (21:39)
[2020-08-02 06:25] LABS: ABS Lymphocytes 1.2 10^3/ul (1.0-4.8); ABS Monocytes 0.2 10^3/ul (0-0.8); Eosinophil % 1.3 %; Hematocrit 40 % (35-47); Hemoglobin 13.6 g/dL (12.0-16.0); Lymphocyte % 49.8 %; Mean Corpuscular HGB Conc 34 g/dL (31-36); Mean Corpuscular Hemoglobin 30 pg (27-31); Mean Corpuscular Volume 86 fL (80-97); Mean Platelet Volume 8.1 fL (7.4-10.4); Nucleated Red Blood Cells % 0.1; Platelet Count 143 10^3/uL (150-450); Red Blood Count 4.61 10^6 /uL (3.70-4.87); Red Cell Distribution Width 12 % (10-15); White Blood Count 2.5 10^3/uL (3.5-10.8)
[2020-08-02 06:46] LABS: Potassium 4.3 mmol/L (3.5-5.0)
[2020-08-02 06:52] LABS: BUN/Creatinine Ratio 13.4 (8-20); EGFR Non-African American 79.3 (>60)
[2020-08-02] MEDS: Sucralfate 1 gm SUSP 1 GM/10 ML UDC PO SCH ×4 (09:04→23:16)
[2020-08-02] MEDS: Cholecalciferol (VIT D3) 1,000 unit TAB PO SCH (09:04)
[2020-08-02] MEDS: diPHENhydraMINE IV 50 MG/ML 1 ml VIAL (BENADRYL) IV PRN ×3 (09:06→23:30)
[2020-08-02] MEDS: Pantoprazole VIAL 40 MG VIAL IV SCH ×2 (09:06→23:18)
[2020-08-02] MEDS: Ondansetron 4 mg VIAL 2 MG/ML 2 ml VIAL IV PRN ×2 (09:06→15:45)
[2020-08-02] MEDS: Lidocaine PATCH 5% PATCH TRANSDERM SCH (09:09)
[2020-08-02] MEDS ORDERED: Polyethylene Glycol 3350 17 GM PACKET PO PRN (11:54)
[2020-08-02] MEDS: Lidocaine Patch REMOVE PATCH PATCH OFF SCH (23:18)
[2020-08-03 07:00] LABS: Hematocrit 41 % (35-47); Hemoglobin 13.9 g/dL (12.0-16.0); Mean Corpuscular HGB Conc 34 g/dL (31-36); Mean Corpuscular Hemoglobin 29 pg (27-31); Mean Corpuscular Volume 86 fL (80-97); Mean Platelet Volume 8.2 fL (7.4-10.4); Platelet Count 137 10^3/uL (150-450); Red Blood Count 4.78 10^6 /uL (3.70-4.87); Red Cell Distribution Width 12 % (10-15); White Blood Count 2.7 10^3/uL (3.5-10.8)
[2020-08-03 07:09] LABS: ABS Lymphocytes 1.5 10^3/ul (1.0-4.8); ABS Monocytes 0.2 10^3/ul (0-0.8); ABS Neutrophils 0.9 10^3/ul (1.5-7.7); Eosinophil % 1.4 %; Lymphocyte % 57.5 %
[2020-08-03 07:13] LABS: BUN/Creatinine Ratio 13.2 (8-20); Calcium 9.2 mg/dL (8.6-10.3); EGFR African American 85.1 (>60); EGFR Non-African American 70.4 (>60); Potassium 4.6 mmol/L (3.5-5.0)
[2020-08-03] MEDS: Sucralfate 1 gm SUSP 1 GM/10 ML UDC PO SCH ×4 (09:36→23:22)
[2020-08-03] MEDS: Cholecalciferol (VIT D3) 1,000 unit TAB PO SCH (09:36)
[2020-08-03] MEDS: Lidocaine PATCH 5% PATCH TRANSDERM SCH (09:40)
[2020-08-03] MEDS: Ondansetron 4 mg VIAL 2 MG/ML 2 ml VIAL IV PRN ×3 (09:40→22:22)
[2020-08-03] MEDS: diPHENhydraMINE IV 50 MG/ML 1 ml VIAL (BENADRYL) IV PRN ×3 (09:40→23:22)
[2020-08-03] MEDS: Pantoprazole VIAL 40 MG VIAL IV SCH ×2 (09:41→22:22)
[2020-08-03] MEDS ORDERED: Magnesium CITRATE LIQ 300 ML BTL PO ONE (18:01)
[2020-08-03] MEDS: Lidocaine Patch REMOVE PATCH PATCH OFF SCH (23:21)
[2020-08-04] MEDS: Sucralfate 1 gm SUSP 1 GM/10 ML UDC PO SCH ×2 (08:09→13:07)
[2020-08-04] MEDS: Cholecalciferol (VIT D3) 1,000 unit TAB PO SCH (08:10)
[2020-08-04] MEDS: Lidocaine PATCH 5% PATCH TRANSDERM SCH (08:15)
[2020-08-04] MEDS: Pantoprazole VIAL 40 MG VIAL IV SCH (08:16)
[2020-08-04] MEDS: diPHENhydraMINE IV 50 MG/ML 1 ml VIAL (BENADRYL) IV PRN (08:20)
[2020-08-04] MEDS: Ondansetron 4 mg VIAL 2 MG/ML 2 ml VIAL IV PRN (08:22)
[2020-08-04 10:05] LABS: ABS Lymphocytes 1.3 10^3/ul (1.0-4.8); ABS Monocytes 0.1 10^3/ul (0-0.8); Eosinophil % 1.2 %; Hematocrit 42 % (35-47); Hemoglobin 14.3 g/dL (12.0-16.0); Lymphocyte % 51.2 %; Mean Corpuscular HGB Conc 34 g/dL (31-36); Mean Corpuscular Hemoglobin 29 pg (27-31); Mean Corpuscular Volume 86 fL (80-97); Mean Platelet Volume 8.2 fL (7.4-10.4); Nucleated Red Blood Cells % 0.1; Platelet Count 140 10^3/uL (150-450); Red Cell Distribution Width 12 % (10-15); White Blood Count 2.5 10^3/uL (3.5-10.8)
[2020-08-04 10:28] LABS: Calcium 9.3 mg/dL (8.6-10.3); EGFR African American 90.9 (>60); EGFR Non-African American 75.1 (>60)
[2020-08-04 13:27] VITALS: BP 117/64
[2020-08-04 17:07] LABS: Albumin 3.4 g/dL (3.4-4.7); Albumin/Globulin Ratio 1.02; Gamma Globulin 1.2 g/dL (0.6-1.6); Total Protein(PEP) 6.8 g/dL (6.3 - 7.9)
== END 2020-08-04 13:25 | disposition home or self-care (01) | DRG 251 ==
LOC: MED 14:40 → ED 14:40 → MED 20:45
PROVIDERS: ADMIT Internal Medicine; ATTEND Internal Medicine

== ENCOUNTER 2020-08-23 14:20 | Inpatient (IN) ==
[~2020-08-23 14:20] MED LIST changes: -Buffered Lidocaine 0.9% SYRIN* 5 ML/SYR SYRINGE INTRADERM ONE; +Buffered Lidocaine 1% SYRIN 1 ml INTRADERM ONE; -Dexamethasone TAB* 4 MG PO ONE; -DiMENhydriNATE IV* 50 MG/ML VIAL IV PUSH PRN; -Famotidine IV* 10 MG/ML 2 ML (20 mg) IV ONE; +Lactated Ringers 1000 ml BAG 1,000 ML IV SCH; -Morphine INJ* 2 MG/ML 1 ML CARPUJECT IV PRN; -Naloxone* 0.4 MG/ML 1 ML VIAL IV PRN; -Ondansetron TAB* 4 MG PO ONE; -PROCHLORPERAZINE INJ 5 MG/ML 2 ML VIAL IV PRN; -Scopolamine 1.5 mg* PATCH TRANSDERM PRN; -fentaNYL* 50 MCG/ML 2 ML VIAL (100 MCG VIAL) IV PRN
[2020-08-23] MEDS ORDERED: diPHENhydraMINE IV 50 MG/ML 1 ml VIAL (BENADRYL) IV PRN ×2 (14:27→22:32)
[2020-08-23] MEDS ORDERED: Prochlorperazine 5 mg/ml 2 ml VIAL (10 mg) IV PRN (14:27)
[2020-08-23] MEDS ORDERED: HYDROcodone/ACETAMIN 5/325 mg TAB PO PRN (14:27)
[2020-08-23] MEDS ORDERED: Naloxone 0.4 mg VIAL 0.4 mg/ml 1 ml VIAL IV PRN (14:27)
[2020-08-23] MEDS ORDERED: Clindamycin 900 MG/D5W BAG 900 MG/50 ML BAG IVPB ONE (14:31)
[2020-08-23] MEDS ORDERED: Ondansetron 4 mg VIAL 2 MG/ML 2 ml VIAL ONE ×2 (16:01→18:36)
[2020-08-23] MEDS ORDERED: fentaNYL 250 mcg/5 ml 50 MCG/ML 5 ml VIAL (250 MCG) ONE (16:01)
[2020-08-23] MEDS ORDERED: Propofol 10 MG/ML 20 ML BTL ONE (16:01)
[2020-08-23] MEDS ORDERED: Dexamethasone IV 4 MG/ML VIAL 1 ml VIAL ONE (16:01)
[2020-08-23] MEDS ORDERED: Midazolam 2 mg/2 ml VIAL 1 mg/ml 2 ml VIAL (2 mg) ONE (16:01)
[2020-08-23] MEDS ORDERED: Lidocaine 2% PF 5 ML VIAL ONE (16:01)
[2020-08-23] MEDS ORDERED: Rocuronium 50 mg VIAL 10 mg/ml 5 ml VIAL (50 mg) ONE (16:24)
[2020-08-23] MEDS ORDERED: Succinylcholine 200 mg VIAL 20 mg/ml 10 ml VIAL (200 mg) ONE (16:34)
[2020-08-23] MEDS ORDERED: Sodium Citrate/Citric Acid LIQ 15 ML UDC PO ONE (16:35)
[2020-08-23] MEDS ORDERED: Bupivacaine 0.25% EPI 200,000 30 ML SDV ONE (17:19)
[2020-08-23] MEDS ORDERED: Phenylephrine 40 mcg/mL 10mL (400mcg) SYRINGE ONE (17:56)
[2020-08-23] MEDS ORDERED: Glycopyrrolate IV 0.2 MG/ML 1 ML VIAL ONE (18:36)
[2020-08-23] MEDS ORDERED: Lactated Ringers 1000 ml BAG 1,000 ML IV SCH (19:00)
[2020-08-23] MEDS ORDERED: Ondansetron 4 mg VIAL 2 MG/ML 2 ml VIAL IV PRN (19:13)
[2020-08-23] MEDS ORDERED: HYDROmorphone 1 MG/1 ML SYRINGE ONE (19:21)
[2020-08-23] MEDS: HYDROmorphone 1 MG/1 ML SYRINGE IV PRN ×3 (19:25→19:59)
[2020-08-23] MEDS: HYDROmorphone 1 MG/1 ML SYRINGE IV SLOW PU PRN (23:29)
[2020-08-24] MEDS: HYDROmorphone 1 MG/1 ML SYRINGE IV SLOW PU PRN (03:29)
[2020-08-24 11:06] VITALS: BP 113/68
[2020-08-25] MEDS ORDERED: Influenza VAC *QUAD* 2020-21* 0.5 ML SYRINGE IM ONE (09:00)
[2020-08-26] MEDS ORDERED: Scopolamine PATCH Remove NOTE PATCH OFF ONE (14:25)
== END 2020-08-24 16:25 | disposition home or self-care (01) | DRG 223 ==
LOC: SSU 14:20 → OR 14:20 → OBSVTOIN 20:01
PROVIDERS: ADMIT Surgery; ATTEND Surgery